=== PATIENT | female | born 1980 | race Caucasian/White ===

== ENCOUNTER → 2024-01-02 11:51 | Outpatient (REF) | payer BC, SELFPAY | LOC: RAD 11:51 | PROVIDERS: ATTENDING PHYSICIAN Nurse Practitioner; OTHER PHYSICIAN Chiropractor | DX: G25.81 Restless legs syndrome (principal); M25.551 Pain in right hip; M25.552 Pain in left hip | CPT/HCPCS: 72110; 73523 ==

== ENCOUNTER → 2024-06-04 12:59 | Outpatient (REF) | payer BC, SELFPAY | LOC: EMG 12:59 | PROVIDERS: ATTENDING PHYSICIAN Nurse Practitioner | DX: G25.81 Restless legs syndrome (principal); M54.12 Radiculopathy, cervical region; R20.9 Unspecified disturbances of skin sensation | CPT/HCPCS: 95886; 95913 ==